=== PATIENT | female | born 1955 | race Caucasian/White ===

== ENCOUNTER → 2024-07-26 | Outpatient (CLI) | payer OTHER ==
--- NOTE | 2024-07-28 22:07 | HMCSR ---
APPROVED REPORT Laterality: Bilateral Indications Syncope Doppler Spectral Velocity Analysis PSV / EDVPSV / EDV ECA (R) 97 / cm/sECA (L) 99 / cm/s dICA (R) 85 / 30 cm/sdICA (L) 77 / 38 cm/s Mal (R) 65 / 23 cm/smICA (L) 89 / 37 cm/s pICA (R) 72 / 30 cm/spICA (L) 75 / 33 cm/s dCCA (R) 79 / 17 cm/sdCCA (L) 81 / 27 cm/s mCCA (R) 119 / 29 cm/smCCA (L) 97 / 32 cm/s pCCA (R) 93 / 19 cm/spCCA (L) 98 / 27 cm/s Vert (R) 44 / cm/sVert (L) 33 / cm/s Subl. (R) 107 / cm/sSubl. (L) 115 / cm/s ICA/CCA 0.71ICA/CCA 0.91 Technologist Impression Minimal plaque noted in the bilateral carotids. ROMÁN and LICA appear patent without hemodynamic significance. Bilateral vertebral arteries appear antegrade. Conclusion Minimal plaque noted in the bilateral carotids, without hemodynamic significance. Bilateral vertebral arteries appear antegrade. Conclusion Minimal plaque noted in the bilateral carotids, without hemodynamic significance. Bilateral vertebral arteries appear antegrade.
== END | disposition home or self-care (01) ==
LOC: SHCH 13:17
PROVIDERS: ATTEND Internal Medicine Cardiovascular Disease
DX: I08.3 Combined rheumatic disorders of mitral, aortic and tricuspid valves (principal); R55 Syncope and collapse
CPT/HCPCS: 93306; 93880